=== PATIENT | female | born 2000 | race Caucasian/White ===

== ENCOUNTER 2018-05-10 19:58 | Emergency (ER) | payer OTHER ==
--- NOTE | 2018-05-10 20:54 | ED ---
Headache - HPI Summary HPI Summary: This patient is a 18 year old female presenting to [facility] with a CC of a headache for the last 3 hours. She is c/o expressive aphasia and visual disturbances. She states the headache was not that severe and that it has mostly resolved. Along with the headache she had numbness that began in the RUE and radiated into her tongue. She has had one migraine 5 years ago with similar sx and was given naproxen. She rates the pain 3/10 in severity on onset. She states all sx have resolved except for the aphasia and mild confusion. Pt states she just feels out of out. She denies neck pain, photophobia, fever, chills, and NVD. She does not have a regular period due to the nexplanon implant. The patient declined CT in the ED . - History Of Current Complaint Chief Complaint: EDHeadache Stated Complaint: HEADACHE/CONFUSED/RT ARM NUMBNESS Time Seen by Provider: 05/10/18 20:42 Hx Obtained From: Patient Onset/Duration: Started hours ago Initially Headache Was: Initial Pain Scale(0-10)= - 3 Currently Pain Is: Mild Timing: Constant Associated Signs And Symptoms: Other (Noted In Comments) - SEE HPI - Allergies/Home Medications Allergies/Adverse Reactions: Allergies Allergy/AdvReac Type Severity Reaction Status Date / Time No Known Allergies Allergy Verified 05/10/18 20:07 Home Medications: Home Medications NK [No Home Medications Reported] 05/10/18 [History Confirmed 05/10/18] PMH/Surg Hx/FS Hx/Imm Hx Cardiovascular History: Denies: Hx Aneurysm, Hx Auto Implanted Cardiovert Defib, Hx Congestive Heart Failure, Hx Coronary Artery Disease Respiratory History: Denies: Hx Chronic Bronchitis, Hx Pleural Effusion, Hx Pulmonary Edema Neurological History: Reports: Hx Headaches, Hx Migraine Psychiatric History: Denies: Hx Post Traumatic Stress Disorder Infectious Disease History: No Infectious Disease History: Denies: Traveled Outside the [place] in Last 30 Days - Family History Known Family History: Negative: Respiratory Disease, Seizure Disorder - Social History Occupation: Student Alcohol Use: Occasionally Hx Substance Use: No Substance Use Type: Reports: None Hx Tobacco Use: No Smoking Status (MU): Never Smoked Tobacco Review of Systems Negative: Fever, Chills Positive: Blurred Vision. Negative: Photophobia Negative: Vomiting, Diarrhea, Nausea Musculoskeletal: Negative - neck pain Neurological: Other - expressive aphasia and mild confusion Positive: Headache, Numbness All Other Systems Reviewed And Are Negative: Yes Physical Exam - Summary Physical Exam Summary: VITAL SIGNS: Reviewed. GENERAL: Patient is a well-developed and nourished FEMALE who is lying comfortable in the stretcher. Patient is not in any acute respiratory distress. HEAD AND FACE: No signs of trauma. No ecchymosis, hematomas or skull depressions. No sinus tenderness. EYES: PERRLA, EOMI x 2, No injected conjunctiva, no nystagmus. No photophobia. EARS: Hearing grossly intact. Ear canals and tympanic membranes are within normal limits. MOUTH: Oropharynx within normal limits. NECK: Supple, trachea is midline, no adenopathy, no JVD, no carotid bruit, no c- spine tenderness, neck with full ROM. No meningeal signs, no Kernig's or brudzinskis signs. CHEST: Symmetric, no tenderness at palpation LUNGS: Clear to auscultation bilaterally. No wheezing or crackles. CVS: Regular rate and rhythm, S1 and S2 present, no murmurs or gallops appreciated. ABDOMEN: Soft, non-tender. No signs of distention. No rebound no guarding, and no masses palpated. Bowel sounds are normal. EXTREMITIES: FROM in all major joints, no edema, no cyanosis or clubbing. NEURO: Alert and oriented x 3. No acute neurological deficits. Speech is normal and follows commands. SKIN: Dry and warm GCS: 15 The patient was able to ambulate in the ED without assistance, gait is normal Triage Information Reviewed: Yes Vital Signs On Initial Exam: Initial Vitals Temp Pulse Resp BP Pulse Ox 98.2 F 79 16 141/95 98 05/10/18 20:03 05/10/18 20:03 05/10/18 20:03 05/10/18 20:03 05/10/18 20:03 Vital Signs Reviewed: Yes Diagnostics - Vital Signs Vital Signs Temp Pulse Resp BP Pulse Ox 05/10/18 20:03 98.2 F 79 16 141/95 98 - Laboratory Lab Statement: Any lab studies that have been ordered have been reviewed, and results considered in the medical decision making process. Headache Course/Dx - Course Assessment/Plan: The patient is a 18-year-old female who comes into the emergency department reporting that early in the afternoon she had a headache as she did have some tingling and numbness in the right upper extremity and right side of face. All her symptoms resolved. At arrival to the emergency department the patient denies any headache, no numbness, no tingling and has no other complaints. She denies any history of trauma or heavy lifting. I perform a thorough neurological exam and it is negative. Therefore we discussed the benefits and risk of a head CT the patient declined a CT. However , patient reports that she will stay with her roommate and she will continue to be assessed the patient for any neurological changes. Since the patient is completely asymptomatic, she declined the CT at this point I will discharge the patient home with follow-up with primary care physician. She was given a specific instructions to return to the emergency room she develops any fever, headache, nausea, no vision, double vision, change in mental status, or any other symptom. The patient understands and agrees. The patient will be be going home with her roommate. - Diagnoses Differential Diagnosis/HQI/PQRI: Migraine, Tension Headache Provider Diagnoses: Headache Discharge - Sign-Out/Discharge Documenting (check all that apply): Patient Departure Patient Received Moderate/Deep Sedation with Procedure: No - Discharge Plan Condition: Stable Disposition: HOME Patient Education Materials: Acute Headache (ED) Referrals: [facility]ERR[facility] [Outside] Additional Instructions: Follow up with your primary care physician in 1-3 days. RETURN TO THE EMERGENCY DEPARTMENT FOR CHANGING OR WORSENING SYMPTOMS. - Billing Disposition and Condition Condition: STABLE Disposition: Home - Attestation Statements Document Initiated by George: Yes Documenting Scribe: Frantz Sandra Provider For Whom George is Documenting (Include Credential): Curtis Norman MD Scribe Attestation: Frantz Alexandra scribed for Curtis Norman MD on 05/11/18 at 2059. Scribe Documentation Reviewed: Yes Provider Attestation: The documentation as recorded by the Frantz couch accurately reflects the service I personally performed and the decisions made by Curtis sparks MD Status of Scribe Document: Viewed
[2018-05-10 21:17] VITALS: BP 121/79
== END 2018-05-10 21:17 | disposition home or self-care (01) ==
LOC: ED 19:58
DX: R51 Headache (principal); H53.8 Other visual disturbances
CPT/HCPCS: 96361; 96374; 96375; 99282; 99283